=== PATIENT | female | born 1970 | race Caucasian/White ===

== ENCOUNTER 2017-01-31 11:04 | Emergency (ER) | payer OTHER ==
[~2017-01-31] VITALS: Ht 157.5 cm; Wt 78.0 kg
[~2017-01-31 11:04] MED LIST: FERR27TA; PV W1TAB7
[2017-01-31 11:17] VITALS: Ht 157.5 cm; Wt 78.0 kg
[2017-01-31 12:12] LABS: BASOPHILS % 0.4 % (0.0-2.0); EOSINOPHILS # 0.1 10^3/ul (0.0-0.5); EOSINOPHILS % 1.3 % (0.0-7.0); HEMATOCRIT 42.9 % (37.0-47.0); HEMOGLOBIN 14.4 g/dl (12.0-16.0); LYMPHOCYTES # 1.1 10^3/ul (0.8-2.9); LYMPHOCYTES % 13.8 % (15.0-51.0); MEAN CORPUSCULAR HEMOGLOBIN 29.4 pg (29.0-33.0); MEAN CORPUSCULAR HGB CONC 33.6 g/dl (32.0-37.0); MEAN CORPUSCULAR VOLUME 87.7 fl (82.0-101.0); MEAN PLATELET VOLUME 9.4 fl (7.4-10.4); MONOCYTE # 0.4 10^3/ul (0.3-0.9); MONOCYTES % 5.1 % (0.0-11.0); NEUTROPHIL # 6.1 10^3/ul (1.6-7.5); NEUTROPHILS % 78.9 % (39.0-77.0); PLATELET COUNT 253 10^3/UL (140-415); RED BLOOD COUNT 4.89 10^6/ul (4.20-5.40); RED CELL DISTRIBUTION WIDTH 12.5 % (11.5-14.5); WHITE BLOOD COUNT 7.8 10^3/ul (4.8-10.8)
[2017-01-31 12:41] LABS: ANION GAP 17 (8-16); BLOOD UREA NITROGEN 11 mg/dl (7-20); CALCIUM 9.4 mg/dl (8.4-10.2); CARBON DIOXIDE 27 mmol/L (21-31); CHLORIDE 103 mmol/L (97-110); CREATININE 0.69 mg/dl (0.44-1.00); GLUCOSE 117 mg/dl (70-220); POTASSIUM 4.1 mmol/L (3.5-5.1); SODIUM 143 mmol/L (135-144)
[2017-01-31 13:01] LABS: TROPONIN-I < 0.012 ng/ml (0.00-0.12)
--- NOTE | 2017-01-31 13:02 | RADRPT ---
PROCEDURE: XR Chest. CLINICAL INDICATION: Chest Pain. TECHNIQUE: Single frontal view of the chest was obtained COMPARISON: None FINDINGS: The heart and mediastinum are within normal limits. The lungs are clear. There is no pleural effusion or pneumothorax. The bones and soft tissue show no acute change. IMPRESSION: No definite abnormalities are identified. RPTAT:AAJJ Justin Aaron Physician Date Time Electronically viewed and signed by Justin Aaron Physician on 01/31/2017 13:02 /
[2017-01-31] MEDS ORDERED: GUAI-637 PO (13:11)
[2017-01-31] MEDS ORDERED: MED4DP PO (13:12)
--- NOTE | 2017-01-31 13:20 | ERD ---
ER Documentation Chief Complaint Chief Complaint cough,runny nose x 7 days HPI This is a 46-year-old female presents to the ER with a cough, runny nose for the last week. Patient states that she is also had chest pressure and she feels anxious at times with associated shortness of breath. Patient states that this happens since she began to cough. Her cough is productive. Chest pain and shortness of breath is nonexertional. Patient has also had a fever which is now resolved. Patient tried taking Advil however it did not work. Patient does not have a past medical history of diabetes, hypertension and there is no family history of cardiac problems. ROS 12 point review of systems was done, all negative except per HPI. Medications Home Meds Active Scripts Methylprednisolone* (Medrol* DOSE PACK) 4 Mg/Dose-Pack Tab.ds.pk, 4 MG PO . DIRECTED for 6 Days, PACKET Prov:DAPHNE COLUNGA Rhea 01/31/17 Guaifenesin* (Robitussin*) 100 Mg/5 Ml Syrup, 200 MG PO Q6H Y for COUGH for 3 Days, ML Prov:DAPHNE COLUNGA 01/31/17 Reported Medications Ferrous Sulfate (Iron) 1 Tab Tablet 09/30/09 Pv W-O Vit A/Fe Fumarate/Fa (Precare Tablet) 1 Tab Tablet 09/30/09 Allergies Allergies: Coded Allergies: No Known Allergy (Unverified Allergy, Unknown, 09/30/09) PMhx/Soc Medical and Surgical Hx: pt denies Medical Hx, pt denies Surgical Hx History of Surgery: No Anesthesia Reaction: No Hx Alcohol Use: Yes (drinks occasionally) Hx Substance Use: No Hx Tobacco Use: No Smoking Status: Never smoker Physical Exam Vitals Vital Signs Date Time Temp Pulse Resp B/P Pulse Ox O2 Delivery O2 Flow Rate FiO2 01/31/17 11:17 98.8 81 18 132/81 99 Physical Exam GENERAL: The patient is well developed and appropriate for usual state of health , in no apparent distress. HEENT: Atraumatic. Conjunctivae are pink. Pupils equal, round, and reactive to light. Extraocular muscles are grossly intact. Bilateral tympanic membranes are clear with no evidence of erythema, effusion or dulling of the light reflex. The oropharynx is clear with no erythema or exudates. NECK: C-spine is soft and supple. There is no cervical lymphadenopathy. CHEST: Clear to auscultation bilaterally. There are no rales, wheezes or rhonchi. HEART: Regular rate and rhythm. No murmurs, clicks, rubs or gallops. ABDOMEN: Soft, nontender and nondistended. no Pulsatile masses NEURO: Alert and oriented. Result Diagram: 01/31/17 1201 01/31/17 1201 Results 24 hrs Laboratory Tests Test 01/31/17 12:01 White Blood Count 7.810^3/ul Red Blood Count 4.8910^6/ul Hemoglobin 14.4g/dl Hematocrit 42.9% Mean Corpuscular Volume 87.7fl Mean Corpuscular Hemoglobin 29.4pg Mean Corpuscular Hemoglobin Concent 33.6g/dl Red Cell Distribution Width 12.5% Platelet Count 15093^3/UL Mean Platelet Volume 9.4fl Neutrophils % 78.9% Lymphocytes % 13.8% Monocytes % 5.1% Eosinophils % 1.3% Basophils % 0.4% Nucleated Red Blood Cells % 0.0/100WBC Neutrophils # 6.110^3/ul Lymphocytes # 1.110^3/ul Monocytes # 0.410^3/ul Eosinophils # 0.110^3/ul Basophils # 0.010^3/ul Nucleated Red Blood Cells # 0.010^3/ul Sodium Level 143mmol/L Potassium Level 4.1mmol/L Chloride Level 103mmol/L Carbon Dioxide Level 27mmol/L Anion Gap 17 Blood Urea Nitrogen 11mg/dl Creatinine 0.69mg/dl Glucose Level 117mg/dl Calcium Level 9.4mg/dl Troponin I < 0.012ng/ml [place] [id number] Radiology Main Line: [phone] DIAGNOSTIC IMAGING REPORT Patient: HIMANSHU DE LA PAZ : 1970 Age: 46 Sex: F [facility]: [id number] [facility] [id number] DOS: 01/31/17 1152 Ordering MD: DAPHNE COLUNGA PA-C Location: [facility] Room/Bed: PROCEDURE: XR Chest. CLINICAL INDICATION: Chest Pain. TECHNIQUE: Single frontal view of the chest was obtained COMPARISON: None FINDINGS: The heart and mediastinum are within normal limits. The lungs are clear. There is no pleural effusion or pneumothorax. The bones and soft tissue show no acute change. IMPRESSION: No definite abnormalities are identified. RPTAT:AAJJ Justin Aaron Physician Date Time Electronically viewed and signed by Justin Aaron Physician on 01/31/2017 13: 02 MC/ CC: DAPHNE COLUNGA Procedures/MDM EKG was done [address] elevation no T-wave inversion signed by Dr. Blanco. This is a 46-year-old female presents to the ER with cough, runny nose, chest pain, shortness of breath and fevers for the last week. At this time suspicion for acute cardiac etiology is low her heart score is 1, she is very low risk. Patient does not have any PERC criteria suspicion for pulmonary embolism is low. Her x-ray was negative for pneumonia or pneumothorax. I doubt Boerhaave syndrome. I doubt aortic dissection. Patient will be sent home with promethazine and with prednisolone. She is to follow-up with her primary care doctor within 1-2 days return to ER sooner if symptoms worsen. My medical decision making was shared with the patient is with plan. Departure Diagnosis: Primary Impression: Upper respiratory infection Condition: Stable Patient Instructions: Uri, Viral, No Abx (Adult) Referrals: RENEE FLORES (PCP) Additional Instructions: Llame al doctor CHIQUITA y asha linnette IVON PARA DENTRO DE 1-2 CLINE.Dgale a la secretaria que nosotros le instruimos hacer esta ivon.Avise o llame si hernandez condicin se empeora antes de la ivon. Regresa aqui si peor o no mejor. DAPHNE COLUNGA Jan 31, 2017 13:20
== END 2017-01-31 13:49 | disposition home or self-care (01) ==
LOC: FTE 11:04
DX: J06.9 Acute upper respiratory infection, unspecified (principal); R07.9 Chest pain, unspecified
CPT/HCPCS: 36415; 71010; 80048; 84484; 85025; Z7502

== ENCOUNTER 2017-02-11 05:41 | Emergency (ER) | END 2017-02-11 10:08 | disposition home or self-care (01) ==

== ENCOUNTER 2017-04-26 10:11 | Emergency (ER) | END 2017-04-26 12:39 | disposition home or self-care (01) ==

== ENCOUNTER 2018-06-30 10:47 | Emergency (ER) | payer OTHER ==
[~2018-06-30] VITALS: Wt 79.0 kg
[~2018-06-30 10:47] MED LIST changes: +ACET500C5 PO; +AMOX500C2 PO; +ELEC100080 PO; +GUAI-637 PO; +IBUP-1542 PO; +MED4DP PO; +OMEP20CA16 PO; +ONDA4TAB8 PO
[2018-06-30] MEDS ORDERED: OXYM15SP34 NASAL (12:06)
[2018-06-30] MEDS ORDERED: RANI150T35 PO (12:06)
--- NOTE | 2018-06-30 12:06 | ERD ---
ER Documentation Chief Complaint Chief Complaint LEGS PAIN,EPIGASTRIC PAIN, HX GASTRITIS, EATING NORMALLY HPI This 47-year-old female presents to the emergency room for evaluation of abdominal pain. The patient states she had abdominal pain for the past 3 months and states that it is sometimes better after she eats. The patient was also concerned because she has had nasal congestion for the past 2 months. She has not taken any medications for her symptoms and came to the emergency room for evaluation of symptoms. The patient denies any chest pain, nausea, vomiting, diarrhea. ROS All systems reviewed and are negative except as per history of present illness. Medications Home Meds Discontinued Reported Medications Ferrous Sulfate (Iron) 1 Tab Tablet 09/30/09 Pv W-O Vit A/Fe Fumarate/Fa (Precare Tablet) 1 Tab Tablet 09/30/09 Discontinued Scripts Ondansetron Hcl* (Zofran*) 4 Mg Tablet, 4 MG PO Q6H for NAUSEA AND/OR VOMITING, #30 TAB Prov:EMIR MENDOZAC 04/26/17 Electrolyte,Oral (Pedialyte) 1,000 Ml Solution, 100 ML PO Q6 PRN for FEVER, #1000 ML Prov:EMIR MENDOZA-C 04/26/17 Acetaminophen* (Tylophen*) 500 Mg Capsule, 1 CAP PO Q6H PRN for PAIN AND OR ELEVATED TEMP, #30 CAP Prov:EMIR MENDOZA-C 04/26/17 Ibuprofen* (Motrin*) 600 Mg Tab, 600 MG PO Q6, #30 TAB Prov:EMIR MENDOZAC 04/26/17 Amoxicillin* (Amoxicillin*) 500 Mg Cap, 500 MG PO TID for 10 Days, CAP Prov:EMIR MENDOZA-C 04/26/17 Omeprazole* (Omeprazole*) 20 Mg Capsule.dr, 20 MG PO BID, #20 Prov:EMIR MENDOZAC 02/11/17 Ondansetron Hcl* (Zofran*) 4 Mg Tablet, 4 MG PO Q6H for NAUSEA AND/OR VOMITING, #30 TAB Prov:EMIR MENDOZA-C 02/11/17 Acetaminophen* (Tylophen*) 500 Mg Capsule, 1 CAP PO Q6H PRN for PAIN AND OR ELEVATED TEMP, #30 CAP Prov:EMIR MENODZAAugustine COTA 02/11/17 Methylprednisolone* (Medrol* DOSE PACK) 4 Mg/Dose-Pack Tab.ds.pk, 4 MG PO . DIRECTED for 6 Days, PACKET Prov:DAPHNE COLUNGA 01/31/17 Guaifenesin* (Robitussin*) 100 Mg/5 Ml Syrup, 200 MG PO Q6H PRN for COUGH for 3 Days, ML Prov:DAPHNE COLUNGA 01/31/17 Allergies Allergies: Coded Allergies: No Known Allergy (Unverified , 02/11/17) PMhx/Soc History of Surgery: Yes (cholecystectomy 2006) Anesthesia Reaction: No Hx Alcohol Use: No Hx Substance Use: No Hx Tobacco Use: No Smoking Status: Never smoker Physical Exam Vitals Vital Signs Date Temp Pulse Resp B/P (MAP) Pulse Ox O2 O2 Flow FiO2 Time Delivery Rate 06/30/18 98.1 73 18 126/74 99 Room Air 11:28 (91) 06/30/18 98.1 74 18 126/74 99 10:50 (91) Physical Exam INITIAL VITAL SIGNS: Reviewed by me GENERAL: The patient is well developed and appropriate for usual state of health in no apparent distress HEENT: Pupils equal, round, and reactive to light. EOMI. There is no scleral icterus. NECK: C-spine is soft and supple, there is no meningismus. There is no cervical lymphadenopathy. LUNGS: Clear to auscultation bilaterally. There are no rales, wheezes or rhonchi. HEART: Regular rate and rhythm, no murmurs, clicks, rubs or gallops. ABDOMEN: Epigastric tenderness to palpation, negative Sweeney sign, soft, non- tender, non-distended. There are bowel sounds in all four quadrants. No rebound or guarding. EXTREMITIES: There is no peripheral cyanosis or edema. No focal swelling or erythema. NEUROLOGICAL: The patient moves all four extremities with 5/5 strength. Cranial nerves II - XII are intact. Normal gait. Alert and oriented SKIN: There is no apparent rash or petechiae. HEME/LYMPHATIC: There is no evidence of excessive bruising or lymphedema. PSYCHIATRIC: The patient does not appear anxious or depressed. Result Diagram: 06/30/18 1123 06/30/18 1122 Results 24 hrs Laboratory Tests Test 06/30/18 11:22 06/30/18 11:23 06/30/18 11:25 Sodium Level 139 mmol/L Potassium Level 3.7 mmol/L Chloride Level 108 mmol/L Carbon Dioxide Level 24 mmol/L Anion Gap 7 Blood Urea Nitrogen 12 mg/dl Creatinine 0.60 mg/dl Est Glomerular Filtrat > 60 mL/min Rate mL/min Glucose Level 121 mg/dl Calcium Level 8.6 mg/dl Total Bilirubin 1.5 mg/dl Direct Bilirubin 0.00 mg/dl Indirect Bilirubin 1.5 mg/dl Aspartate Amino 30 IU/L Transf (AST/SGOT) Alanine 33 IU/L Aminotransferase (ALT/SGPT) Alkaline Phosphatase 58 IU/L Troponin I < 0.012 ng/ml Total Protein 7.3 g/dl Albumin 4.2 g/dl Globulin 3.10 g/dl Albumin/Globulin Ratio 1.35 Lipase 86 U/L White Blood Count 6.8 10^3/ul Red Blood Count 4.77 10^6/ul Hemoglobin 14.0 g/dl Hematocrit 42.5 % Mean Corpuscular Volume 89.1 fl Mean Corpuscular Hemoglobin 29.4 pg Mean Corpuscular 32.9 g/dl Hemoglobin Concent Red Cell Distribution Width 13.2 % Platelet Count 249 10^3/UL Mean Platelet Volume 9.4 fl Immature Granulocytes % 0.300 % Neutrophils % 60.7 % Lymphocytes % 32.3 % Monocytes % 5.0 % Eosinophils % 1.3 % Basophils % 0.4 % Nucleated Red Blood Cells % 0.0 /100WBC Immature Granulocytes # 0.020 10^3/ul Neutrophils # 4.1 10^3/ul Lymphocytes # 2.2 10^3/ul Monocytes # 0.3 10^3/ul Eosinophils # 0.1 10^3/ul Basophils # 0.0 10^3/ul Nucleated Red Blood Cells # 0.0 10^3/ul Urine Color YELLOW Urine Clarity SLIGHTLY CLOUDY Urine pH 6.0 Urine Specific [place] 1.023 Urine Ketones NEGATIVE mg/dL Urine Nitrite NEGATIVE mg/dL Urine Bilirubin NEGATIVE mg/dL Urine Urobilinogen 1+ mg/dL Urine Leukocyte Esterase NEGATIVE Emilia/ul Urine Microscopic RBC 5 /HPF Urine Microscopic WBC 0 /HPF Urine Squamous Epithelial Cells FEW /HPF Urine Hemoglobin 1+ mg/dL Urine Glucose NEGATIVE mg/dL Urine Total Protein NEGATIVE mg/dl Procedures/MDM This 47-year-old female presents to the ER for evaluation and multiple complaints including nasal congestion, abdominal pain, and generalized weakness for 3 months. My exam the patient has a nontender abdomen, she has no rebound or guarding. The patient did have her gallbladder removed. Lab work was obtained which is normal, the patient is likely suffering from gastritis. The patient also has nasal congestion and will be discharged home with a prescription for Afrin, and Zantac. She was advised need to follow-up with her primary care physician and she verbalized understanding. Differential diagnoses entertained was broad with potential high acuity. Patient has been evaluated for appendicitis, cholecystitis, and other high risk medical and surgical causes of abdominal pain. Ultimately the patient's evaluation is nondiagnostic. Based on the patient's lack of risk factors, as well as the patient's clinical, laboratory, and imaging data, the patient appears to be low risk for these high risk causes of abdominal pain. Departure Diagnosis: Primary Impression: Acute gastritis Additional Impression: Nasal congestion Condition: ELVA Avelar DO June 30, 2018 12:06
[2018-06-30 12:30] VITALS: BP 122/71; PULSE 69; RESP 18
== END 2018-06-30 12:43 | disposition home or self-care (01) ==
LOC: E/R 10:47
DX: K29.00 Acute gastritis without bleeding (principal); R09.81 Nasal congestion
CPT/HCPCS: 36415; 80053; 81001; 83690; 84484; 85025; Z7502; 99283